=== PATIENT | female | born 1980 | race Caucasian/White ===

== ENCOUNTER → 2020-05-12 | Day surgery (SDC) | payer OTHER ==
[~2020-05-12] MED LIST: ASPIRIN CHEWABL81 MG PO; ATORVASTATIN CA40 MG PO; BENTYL 20MG TAB20 MG PO; BUTALB-ACETAMI1 EAC1 PO; COZAAR50 MG PO; ELAVIL 25 MG TA25 MG PO; EXPECTORANT200 MG PO; FELDENE10 MG PO; FLAGYL500 MG PO; FLEXERIL 10 MG10 MG PO; KEPPRA750 MG PO; L-METHYLFOLATE7.5 M1 PO; LEVAQUIN500 MG PO; LIPITOR TAB 2020 MG PO; MAALOX PLUS 3030 ML PO; NORCO 7.5-3251 EACH PO; PERCOCET 7.5-31 EACH PO; PREVACID30 MG PO; PROPRANOLOL HCL20 MG PO; PROTONIX40 MG PO; ROBAXIN 750 MG750 MG PO; TESSALON PERLE100 MG PO; TOPAMAX 25 MG T25 MG PO; VENTOLIN HFA 66.7 GM INH; VIBRAMYCIN100 MG PO; Voltaren Gel 1 % TOP; WIXELA 100-501 EACH INH; ZOFRAN4 MG PO
== END | disposition home or self-care (01) ==
LOC: OR 08:05
PROVIDERS: Internal Medicine Gastroenterology
PROC: 0DB78ZX Excision of Stomach, Pylorus, Via Natural or Artificial Opening Endoscopic, Diagnostic (ICD-10-PCS; principal; 2020-05-12 12:00)
DX: K29.70 Gastritis, unspecified, without bleeding (principal); K25.9 Gastric ulcer, unspecified as acute or chronic, without hemorrhage or perforation; K31.89 Other diseases of stomach and duodenum; K21.00 Gastro-esophageal reflux disease with esophagitis, without bleeding; K44.9 Diaphragmatic hernia without obstruction or gangrene; E66.8 Other obesity; G40.909 Epilepsy, unspecified, not intractable, without status epilepticus; E78.5 Hyperlipidemia, unspecified; F17.210 Nicotine dependence, cigarettes, uncomplicated; E66.01 Morbid (severe) obesity due to excess calories; Z88.1 Allergy status to other antibiotic agents; Z88.8 Allergy status to other drugs, medicaments and biological substances; Z79.899 Other long term (current) drug therapy
CPT/HCPCS: 80076; 82150; 83690; 84703; J2250; J2704; J3010; J7040

== ENCOUNTER 2020-11-24 21:57 | Emergency (ER) | payer OTHER ==
[2020-11-24] MEDS ORDERED: NAPROSYN500 MG PO (23:51)
[2020-11-24] MEDS ORDERED: ONDANSETRON ODT4 MG SL (23:51)
== END 2020-11-25 00:05 | disposition home or self-care (01) ==
LOC: ER1 21:57
DX: S63.501A Unspecified sprain of right wrist, initial encounter (principal); S60.222A Contusion of left hand, initial encounter; F17.200 Nicotine dependence, unspecified, uncomplicated; Z86.73 Personal history of transient ischemic attack (TIA), and cerebral infarction without residual deficits; Z90.49 Acquired absence of other specified parts of digestive tract; W19.XXXA Unspecified fall, initial encounter; Y92.009 Unspecified place in unspecified non-institutional (private) residence as the place of occurrence of the external cause
CPT/HCPCS: 29125; 73130; 99283

== ENCOUNTER → 2021-03-03 | Outpatient (CLI) | payer MEDICARE, OTHER ==
[~2021-03-03] MED LIST changes: +NAPROSYN500 MG PO; +ONDANSETRON ODT4 MG SL
== END ==
LOC: KOH-I 08:43
DX: M54.2 Cervicalgia (principal); M54.6 Pain in thoracic spine; M47.812 Spondylosis without myelopathy or radiculopathy, cervical region
CPT/HCPCS: 72050; 72070

== ENCOUNTER 2021-03-21 16:57 | Emergency (ER) | payer MEDICARE, OTHER ==
[2021-03-21 19:40] LABS: HEMOGLOBIN 13.1 gm/dl (12.3-15.3); RED BLOOD COUNT 4.45 M/UL (4.00-5.10); WHITE BLOOD COUNT 10.9 K/UL (4.5-11.0)
[2021-03-21 19:56] LABS: BUN/CREATININE RATIO 14 (0-10)
== END 2021-03-21 21:50 | disposition short-term general hospital (02) ==
LOC: ER1 16:57
PROVIDERS: Family Medicine
DX: I63.9 Cerebral infarction, unspecified (principal); R53.1 Weakness; R51.9 Headache, unspecified; G40.909 Epilepsy, unspecified, not intractable, without status epilepticus; F17.200 Nicotine dependence, unspecified, uncomplicated; Z86.73 Personal history of transient ischemic attack (TIA), and cerebral infarction without residual deficits; Z88.1 Allergy status to other antibiotic agents; Z88.8 Allergy status to other drugs, medicaments and biological substances; Z86.69 Personal history of other diseases of the nervous system and sense organs; Z79.82 Long term (current) use of aspirin; Z79.899 Other long term (current) drug therapy
CPT/HCPCS: 70450; 71045; 80048; 82550; 82553; 83874; 84484; 85025; 93005; 99285; C1751; J2997

== ENCOUNTER 2021-11-17 22:12 | Emergency (ER) | payer MEDICARE, OTHER ==
[2021-11-17 22:39] LABS: HEMOGLOBIN 12.8 gm/dl (12.3-15.3); RED BLOOD COUNT 4.36 M/UL (4.00-5.10); WHITE BLOOD COUNT 12.6 K/UL (4.5-11.0)
[2021-11-17 23:44] LABS: BUN/CREATININE RATIO 14 (0-10)
[2021-11-18 01:10] LABS: HEMOGLOBIN 12.4 gm/dl (12.3-15.3); RED BLOOD COUNT 4.28 M/UL (4.00-5.10)
[2021-11-18 01:42] LABS: BUN/CREATININE RATIO 14 (0-10)
== END 2021-11-18 04:45 | disposition home or self-care (01) ==
LOC: ER1 22:12
PROVIDERS: Family Medicine
DX: G40.909 Epilepsy, unspecified, not intractable, without status epilepticus (principal); G43.909 Migraine, unspecified, not intractable, without status migrainosus; R07.9 Chest pain, unspecified; F17.200 Nicotine dependence, unspecified, uncomplicated; Z20.822 Contact with and (suspected) exposure to COVID-19; Z86.73 Personal history of transient ischemic attack (TIA), and cerebral infarction without residual deficits; Z88.8 Allergy status to other drugs, medicaments and biological substances; Z88.1 Allergy status to other antibiotic agents
CPT/HCPCS: 36600; 70450; 71045; 80053; 80307; 81001; 82550; 82553; 82803; 83605; 83690; 83735; 84484; 85025; 85610; 93005; 96374; 99285; G0480; J1170; J1953; J2250; U0002

== ENCOUNTER → 2021-11-17 | Outpatient (CLI) | payer MEDICARE, OTHER | LOC: CT 10:38 | DX: H91.8X3 Other specified hearing loss, bilateral (principal); J01.81 Other acute recurrent sinusitis | CPT/HCPCS: 70460; 70481; 70486; Q9967 ==

== ENCOUNTER 2021-11-29 21:30 | Emergency (ER) | payer MEDICARE ==
[2021-11-29 21:54] LABS: HEMOGLOBIN 12.8 gm/dl (12.3-15.3); RED BLOOD COUNT 4.3 M/UL (4.00-5.10); WHITE BLOOD COUNT 11.7 K/UL (4.5-11.0)
[2021-11-29 22:28] LABS: BUN/CREATININE RATIO 9 (0-10)
== END 2021-11-30 00:45 | disposition home or self-care (01) ==
LOC: ER1 21:30
PROVIDERS: Emergency Medicine
DX: S46.012A Strain of muscle(s) and tendon(s) of the rotator cuff of left shoulder, initial encounter (principal); S70.02XA Contusion of left hip, initial encounter; W17.89XA Other fall from one level to another, initial encounter; Y92.009 Unspecified place in unspecified non-institutional (private) residence as the place of occurrence of the external cause
CPT/HCPCS: 70450; 71045; 72125; 72128; 72131; 72170; 73030; 73502; 73600; 80053; 83605; 84703; 85025; 85610; 85730; 86850; 86900; 86901; 93005; 96374; 96375; 96376; 99284; G0480; J1170; J1885; J2060; J2405

== ENCOUNTER → 2021-12-23 | Outpatient (CLI) | payer MEDICARE | LOC: HEART 5 07:30 | DX: R07.9 Chest pain, unspecified (principal) | CPT/HCPCS: 78452; A9502; J2785 ==

== ENCOUNTER → 2022-01-06 | Outpatient (CLI) | payer MEDICARE, OTHER | LOC: KOH-I 12:17 | DX: J01.81 Other acute recurrent sinusitis (principal); J34.2 Deviated nasal septum | CPT/HCPCS: 70486 ==